=== PATIENT | female | born 1945 | race African-American/Black ===

== ENCOUNTER 2019-02-23 00:43 | Outpatient (CLI) | payer MEDICARE ==
[~2019-02-23 00:43] MED LIST: CARV-50 PO; FURO40TA4 PO; GLIP-127 PO; IBUP-1984 PO; LEVO100T46 PO; LISI-600 PO; NITR0.4T51 SL; POTA20TA19 PO; TEMA15CA5 PO; TRAZ-91 PO
== END 2019-02-23 23:59 | disposition home or self-care (01) ==
LOC: DIABETIC 00:43
PROVIDERS: ATTEND Internal Medicine
DX: E11.65 Type 2 diabetes mellitus with hyperglycemia (principal); E11.319 Type 2 diabetes mellitus with unspecified diabetic retinopathy without macular edema; E11.40 Type 2 diabetes mellitus with diabetic neuropathy, unspecified; E11.21 Type 2 diabetes mellitus with diabetic nephropathy; E11.43 Type 2 diabetes mellitus with diabetic autonomic (poly)neuropathy; K31.84 Gastroparesis; I10 Essential (primary) hypertension; Z88.1 Allergy status to other antibiotic agents; Z88.6 Allergy status to analgesic agent; Z79.899 Other long term (current) drug therapy; Z79.4 Long term (current) use of insulin; Z79.82 Long term (current) use of aspirin
CPT/HCPCS: G0108

== ENCOUNTER 2019-03-23 04:12 | Outpatient (CLI) | payer MEDICARE | END 2019-03-23 23:59 | disposition home or self-care (01) | LOC: DIABETIC 04:12 | PROVIDERS: ATTEND Internal Medicine | DX: E11.65 Type 2 diabetes mellitus with hyperglycemia (principal); E11.21 Type 2 diabetes mellitus with diabetic nephropathy; E11.319 Type 2 diabetes mellitus with unspecified diabetic retinopathy without macular edema; E11.43 Type 2 diabetes mellitus with diabetic autonomic (poly)neuropathy; K31.84 Gastroparesis; I10 Essential (primary) hypertension; E78.5 Hyperlipidemia, unspecified; Z79.84 Long term (current) use of oral hypoglycemic drugs; Z79.899 Other long term (current) drug therapy | CPT/HCPCS: G0108 ==